=== PATIENT | female | born 1990 | race Caucasian/White ===

== ENCOUNTER 2016-11-21 11:29 | Inpatient (IN) | payer BC ==
[~2016-11-21] VITALS: Ht 172.7 cm; Wt 81.2 kg
--- NOTE | ~2016-11-21 | DS ---
PATIENT'S NAME: MELONY MARTINI [facility] AGE: 26 Y [address] ROOM: [id number] [place], [place] [address] LOCATION: GOBS ADMIT DATE: 11/21/2016 Discharge Summary DISCHARGE DATE: 11/24/2016 FAMILY PHYSICIAN: PHYSICIAN, NO ATTENDING PHYSICIAN: Maryanne Herrera ADMISSION DIAGNOSES: 1. Intrauterine at 38 weeks 3 days. 2. Preeclampsia with thrombocytopenia, remote from delivery. 3. Size greater than dates. DISCHARGE DIAGNOSES: 1. Intrauterine at 38 weeks 3 days. 2. Preeclampsia with thrombocytopenia, remote from delivery. 3. Size greater than dates. PROCEDURES PERFORMED DURING THIS HOSPITALIZATION: Primary low-transverse section. COMPLICATIONS: None. CONSULTATIONS: None. HISTORY AND HOSPITAL COURSE: The patient is a 26-year-old, G2 P-0-0-1-0, who presented at 38 weeks 3 days on November 21, 2016, after being evaluated in the office for a routine visit. She was noted to have blood pressures of 140s-150s/90s as well as thrombocytopenia with a platelet count of 98. The remainder of her labs were within normal limits and her urine protein-to- creatinine ratio was 0.2. There was some concern as the patient was measuring approximately 3 weeks ahead of dates with an DARRELL of 22 and with her being remote from delivery with elevated blood pressures and an unfavorable cervix, the risks to her if her blood pressures continue to be elevated during a prolonged delivery. Discussion was held with the patient and decision was made to proceed with primary low-transverse section. Procedure was without complication and she delivered a viable male infant with a weight of 8 pounds 0 ounces and score of 9 and 9. Estimated blood loss was 600 mL from the procedure. As stated above, there were no complications, and the patient was doing well on postop day #1. She had been on IV magnesium for seizure prophylaxis, but this was discontinued on the first postoperative day. A followup hemoglobin was 9.6 and platelet count was 91. She had appropriate urine output and her average blood pressures were mostly 130s/70s-80s. The patient continued to advance postoperatively. She was meeting all of her postoperative goals on day #3. She was ambulating and voiding without difficulty, tolerating p.o. intake, and was felt to be stable to discharge to home. Incision was clean, dry, and intact at that time with Steri-Strips in PATIENT'S NAME: MELONY MARTINI [facility] AGE: 26 Y [address] ROOM: [id number] [place] [id number] LOCATION: [facility] ADMIT DATE: 11/21/2016 Discharge Summary DISCHARGE DATE: 11/24/2016 FAMILY PHYSICIAN: PHYSICIAN, NO ATTENDING PHYSICIAN: Maryanne Herrera. DISCHARGE INSTRUCTIONS: The patient was instructed to call with fever greater than 100.4, pain not well controlled on oral medications, redness or drainage from or around her incision, heavy vaginal bleeding greater than 2 pads per hour. She was also instructed to have pelvic rest for 6 weeks and no heavy lifting greater than 15 pounds for 4 weeks. She is to have a followup with Dr. Herrera in 2 weeks in the office. For discharge medications, please see medication list. DEAN GALINDO MD GT/modl /[id number] d: 11/24/16714 t: 11/25/16903, DISCHARGE SUMMARY
--- NOTE | ~2016-11-21 | OR ---
[facility]GE[facility] 26 Y [address] ROOM: [place] [address] LOCATION: GOBS ADMIT DATE: 11/21/2016 OR/Procedure Report DISCHARGE DATE: 11/24/2016 FAMILY PHYSICIAN: PHYSICIAN, NO ATTENDING PHYSICIAN: Maryanne Herrera SURGEON: Maryanne Herrera MD MANAGER ROOM: DATE OF PROCEDURE: 11/21/2016 PREOPERATIVE DIAGNOSES: 1. Intrauterine at 38 weeks and 3 days. 2. Preeclampsia with thrombocytopenia, remote from delivery. 3. Size greater than dates. POSTOPERATIVE DIAGNOSES: 1. Intrauterine at 38 weeks and 3 days. 2. Preeclampsia with thrombocytopenia, remote from delivery. 3. Size greater than dates. PROCEDURE: Primary low transverse section. MANAGER ROOM SURGEON: Leon Batista MD. Dr. Batista was necessary for adequate visualization of tissues and delivery of fetus. ESTIMATED BLOOD LOSS: 600 mL. FINDINGS: Male infant, score 8 and 9, weight 8 pounds 0 ounces. Intact placenta, 3-vessel cord. Normal uterus, tubes, and ovaries. DRAINS: None. SPECIMENS: Placenta. COMPLICATIONS: None. INDICATIONS: This patient is a 26-year-old, G2, P 0-0-1-0 female who presented to the office with blood pressures in the 150s/90s, thrombocytopenia with platelet count of 98. Because she was remote from delivery and been measuring large, a decision was made for section; also because of her low platelets, the patient had magnesium sulfate for seizure prophylaxis. Risks, benefits, and alternatives to the procedure were discussed with the patient. She understood the risks to be, but not to be limited to, bleeding, infection, damage to the bowel, bladder, ureter, and surrounding organs and desired to proceed. [facility] AGE: 26 Y [address] ROOM: [place] [address] LOCATION: [facility] ADMIT DATE: 11/21/2016 OR/Procedure Report DISCHARGE DATE: 11/24/2016 FAMILY PHYSICIAN: , NO ATTENDING PHYSICIAN: Maryanne Herrera DESCRIPTION OF PROCEDURE: The patient was taken to the operating room. Anesthesia was found to be adequate. She was prepped and draped in dorsal supine position with leftward tilt. A Pfannenstiel skin incision was made and this was carried down through the fascia. The fascia was incised across the midline. The fascial incision was extended. The rectus muscles were . Peritoneum was entered. The bladder blade was inserted. The uterus incised in a low transverse fashion with the scalpel, and the uterine incision was extended with vertical traction. Surgeon's hand was inserted into the uterus. head delivered. The rest of fetus delivered. The nose and mouth bulb suctioned. The cord was clamped and cut. The infant was handed to awaiting team. Cord blood was drawn. Cord pH was drawn. The placenta was delivered with manual traction. Uterus was exteriorized and cleared of clots and debris. It was repaired with 0 Vicryl in running lock fashion. It was returned to the abdomen. Hemostasis was noted. The fascia was repaired with 0 Vicryl in running fashion, subcutaneous adipose tissue was hemostatic, skin was closed with 4-0 suture. Steri-Strips were placed. COMPLICATIONS: None. CONDITION: Mom stable in room. to nursery. MD BETTY HERNANDEZ/meggan /[id number] d: 11/28/16 0225 t: 11/30/16 0952, OPERATIVE SUMMARY
[~2016-11-21 11:29] MED LIST: FEOSOL325 MG PO; PRENATAL 1+1)(P1 TAB PO
[2016-11-21 12:07] LABS: HEMATOCRIT 38.5 % (33.0-46.0); HEMOGLOBIN 13.1 g/dL (11.0-15.0); MCH 29.6 pg (27.0-34.0); MCV 86.9 fl (83.0-98.0); MPV 13.4 fl (9.4-12.4); RBC 4.43 M/uL (3.50-5.00); RDW-CV 13.5 % (11.9-14.6); WBC 11.4 K/uL (4.0-11.0)
[2016-11-21 12:15] LABS: ALBUMIN 3.3 gm/dL (3.5-5.0); ALK PHOS 135 IU/L (33-138); ALT 26 IU/L (12-78); ANION GAP 11.4 (10.0-19.0); AST 35 IU/L (10-40); BLOOD UREA NITROGEN 6 mg/dL (6-24); CALCIUM 9.1 mg/dL (8.5-10.5); CHLORIDE 107 mMol/L (96-110); CO2 25 mMol/L (22-32); CREATININE 0.6 mg/dL (0.5-1.1); ESTIMATED GFR (MDRD EQUATION) > 60; POTASSIUM 3.4 mMol/L (3.7-5.1); SODIUM 140 mMol/L (135-145); TOTAL PROTEIN 7.1 g/dL (6.0-8.4)
[2016-11-21 12:25] LABS: TOTAL BILIRUBIN 0.5 mg/dL (0.0-1.5)
[2016-11-21 12:39] LABS: PLATELET COUNT 98 K/uL (150-450)
[2016-11-21 12:47] LABS: ABSOLUTE NEUTROPHIL CT (ANC) 8.4 K/uL (1.8-7.8); BANDED NEUTROPHIL # 0.5 K/uL (0.0-0.1); BANDED NEUTROPHILS % 4 %; LYMPHOCYTE # 1.8 K/uL (0.8-4.0); LYMPHOCYTE % 16 %; MONOCYTE # 1.1 K/uL (0.0-1.0); SEGMENTED NEUTROPHIL % 70 %
[2016-11-21 14:21] LABS: BICARBONATE 25.1 mmol/L (18.0-23.0); PCO2 46 mmHg (35-45); PO2 17 mmHg (80-90)
--- NOTE | 2016-11-21 17:00 | NUR ---
11/21/16 1700: 200 ml light yellow urine measured.
--- NOTE | 2016-11-21 18:05 | NUR ---
11/21/16 Iv Magnesium Sulfate remains on 2 grams/50 ml/hr per alaris Iv pump. Ml Iv L/R w/ Pitocin 20 units @ 75 ml/hr per alaris Iv pump. Pt. alert and oriented visits w/ relatives. Report to Marcus Villafuerte Rn assuming post-op cares.
--- NOTE | 2016-11-22 03:52 | NUR ---
VSS, fundus firm, at umbilicus, small flow. urine output good. bp's ranging 107-129/68-82. DTR's 2+, lung sounds clear. RR 14-16. pt on bedrest. magnesium infusing at 50ml/hr.
[2016-11-22 05:40] LABS: BASOPHIL % 0.2 %; EOSINOPHIL # 0.1 K/uL (0.0-0.5); EOSINOPHIL % 0.5 %; HEMOGLOBIN 9.6 g/dL (11.0-15.0); IMMATURE GRANULOCYTE # 0.1 K/uL (0.0-0.3); IMMATURE GRANULOCYTE % 1.2 %; LYMPHOCYTE # 2.1 K/uL (0.8-4.0); LYMPHOCYTE % 18.9 %; MCHC 34.3 gm/dL (32.0-36.5); MCV 87.2 fl (83.0-98.0); MONOCYTE # 0.8 K/uL (0.0-1.0); MONOCYTE % 7.6 %; MPV 13.2 fl (9.4-12.4); NEUTROPHIL # (ANC) 7.9 K/uL (1.8-7.8); NEUTROPHIL % 71.6 %; NRBC % 0 /100WBC (0-0.00); PLATELET COUNT 91 K/uL (150-450); RDW-CV 13.5 % (11.9-14.6)
[2016-11-22 05:43] LABS: MCH 29.9 pg (27.0-34.0); RBC 3.21 M/uL (3.50-5.00)
--- NOTE | 2016-11-22 17:54 | NUR ---
Last VS: T:97.8 P:75 R: 16 BP: 126/82 Pain rating: . Last pain med: Percocet 1 AT 1700 MOTRIN AT 1300 Medicated at: Effective: Yes R Lung sounds: , L Lung sounds: Fundus:, , FF 1 DOWN Lochia: , Breasts: , Nipples: WNL Incision: , Incision appearance: COVERED W/ MICROFOAM DRNG Incision closure: Bowel sounds: Passing flatus: SOME Voiding well: NO VOID YET, BROTHERS DC'D AT 160 Significant event: .MG OFF AT 1100. MAY SHOWER TONIGHT. SALINE LOCK INTACT TO RT WRIST
--- NOTE | 2016-11-23 04:22 | NUR ---
Fundus firm, lochia small, emptying bladder without difficulty. b/p remains a little elevated. patient has referred shoulder and neck pain. has been up in halls last night, has not showered yet. works well with . percocet given at 0200.
--- NOTE | 2016-11-23 10:13 | NUR ---
[id number] I supervised the [employer] student nurse providng patient cares.
--- NOTE | 2016-11-23 16:16 | NUR ---
Shower & bed done this a.m.~tolerated well. Shoulder & neck feeling better. has walked in hallway w/ couple times. States felt so good to sleep last night. Last pain med: reta & wolfet(1) @ 1417//effective.
--- NOTE | 2016-11-24 05:31 | NUR ---
VSS. LAST HAD MOTRIN AT 2228, PERCOCET AT 0228. FUNDUS FIRM, -1, SMALL FLOW. HOME TODAY, STILL NEEDS TO TURN IN CERTIFICATE. PASSING GAS, AMBULATES HALLS.
[2016-11-24] MEDS ORDERED: SURFAK240 MG PO (10:41)
[2016-11-24] MEDS ORDERED: APNO TOP (10:42)
[2016-11-24] MEDS ORDERED: MOTRIN800 MG PO (10:42)
[2016-11-24] MEDS ORDERED: PERCOCET 5-3251 EACH PO (10:43)
== END 2016-11-24 13:20 | disposition disaster alternative care site (69) | DRG 765 ==
LOC: GOBS 11:29 → EDSTATUS 12-02 11:28 → GOBM 12-02 13:05
PROVIDERS: ADMIT Obstetrics & Gynecology
PROC: 10D00Z1 Extraction of Products of Conception, Low, Open Approach (ICD-10-PCS; principal; 2016-11-21)
DX: O14.94 Unspecified pre-eclampsia, complicating childbirth (principal); O99.12 Other diseases of the blood and blood-forming organs and certain disorders involving the immune mechanism complicating childbirth; D69.6 Thrombocytopenia, unspecified; Z3A.38 38 weeks gestation of pregnancy; Z37.0 Single live birth
CPT/HCPCS: J0610; J0690; J1885; J3475; J7120